=== PATIENT | male | born 1950 | race African-American/Black ===

== ENCOUNTER 2018-05-30 07:24 | Day surgery (SDC) | payer MEDICARE, OTHER ==
[2018-05-30] MEDS ORDERED: PROPOFOL 20 ML (09:09)
== END 2018-05-30 10:39 | disposition home or self-care (01) ==
LOC: GIL 07:24
DX: Z12.11 Encounter for screening for malignant neoplasm of colon (principal); K64.4 Residual hemorrhoidal skin tags; D12.3 Benign neoplasm of transverse colon; I10 Essential (primary) hypertension; E78.5 Hyperlipidemia, unspecified; E11.9 Type 2 diabetes mellitus without complications; Z96.649 Presence of unspecified artificial hip joint
CPT/HCPCS: 45384; 88305